=== PATIENT | male | born 1990 | race Caucasian/White ===

== ENCOUNTER 2016-09-21 18:20 | Emergency (ER) | payer BC ==
[~2016-09-21] VITALS: Ht 190.5 cm; Wt 99.2 kg
[2016-09-21 19:30] LABS: HEMATOCRIT 44.2 % (38.0-50.0); MCH 32.3 PG (29.0-34.0); MCHC 35.1 G/DL (30.0-36.0); MCV 92.1 FL (86-99); MEAN PLAT.VOLUME 9.8 uM^3 (9.0-12.4); PLATELET COUNT 262 K/uL (156-360); RBC DIS.WIDTH-CV 13.6 % (11.8-14.6); RBC DIS.WIDTH-SD 45.1 % (39-53); WHITE BLOOD COUNT 7.9 K/uL (4.1-10.2)
[2016-09-21 19:39] LABS: CHLORIDE 105 mEq/L (99-109); POTASSIUM 4.1 mEq/L (3.7-5.4); SODIUM 139 mEq/L (136-147)
[2016-09-21 19:41] LABS: GLUCOSE 93 mg/dL (70-99)
[2016-09-21 19:42] LABS: ANION GAP 13 MEQ/L (2-14)
[2016-09-21 19:45] LABS: GFR ESTIMATE (CALCULATED) > 59 mL/min/; UREA NITROGEN (BUN) 7 mg/dL (9-23)
[2016-09-21 19:51] LABS: TROP-I INTERPRETATION NEGATIVE; TROPONIN-I < 0.01 ng/mL (0.0-0.30)
[2016-09-21] MEDS ORDERED: ATIVAN1 MG PO (20:37)
[2016-09-21 20:48] VITALS: BP 150/87
== END 2016-09-21 20:48 | disposition home or self-care (01) ==
LOC: EME 18:20
PROVIDERS: Physician Assistant
DX: F41.0 Panic disorder [episodic paroxysmal anxiety] (principal); R42 Dizziness and giddiness; F17.200 Nicotine dependence, unspecified, uncomplicated
CPT/HCPCS: 80048; 84484; 85027; 93005; 99281; 99285; J2060; J2405; J7030

== ENCOUNTER 2016-10-18 18:52 | Emergency (ER) | payer BC ==
[~2016-10-18] VITALS: Ht 190.5 cm; Wt 97.1 kg
[~2016-10-18 18:52] MED LIST: ATIVAN1 MG PO
[2016-10-18 21:09] VITALS: BP 168/104
== END 2016-10-18 21:10 | disposition home or self-care (01) ==
LOC: EME 18:52
DX: F41.0 Panic disorder [episodic paroxysmal anxiety] (principal); I10 Essential (primary) hypertension; F17.200 Nicotine dependence, unspecified, uncomplicated
CPT/HCPCS: 99281; 99284

== ENCOUNTER 2017-10-12 21:14 | Emergency (ER) | payer BC ==
[~2017-10-12] VITALS: Ht 190.5 cm; Wt 92.4 kg
[2017-10-13] MEDS ORDERED: MOTRIN800 MG PO (00:13)
[2017-10-13] MEDS ORDERED: NORCO 7.5/321 TABLET PO (00:13)
[2017-10-13] MEDS ORDERED: VALIUM5 MG PO (00:13)
[2017-10-13 00:38] VITALS: BP 142/89
== END 2017-10-13 00:39 | disposition home or self-care (01) ==
LOC: EXP 21:14 → EME 21:14 → EXP 10-13 00:39
DX: M54.41 Lumbago with sciatica, right side (principal); F41.9 Anxiety disorder, unspecified; F17.200 Nicotine dependence, unspecified, uncomplicated
CPT/HCPCS: 99281; 99284; J1885; J3010